=== PATIENT | female | born 2005 ===

== ENCOUNTER 2024-10-03 08:52 | Outpatient (AMB) | payer OTHER, SELFPAY ==
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
[2024-10-03 09:07] VITALS: BP 125/81; PULSE 103; RESP 16; TEMP 36.8; O2SAT 97; BMI 31.6
--- OUTSIDE RECORDS SUMMARY | 2024-10-03 09:40 | XMS_ITS | Encounter Summary ---
Author Organization [facility] Address [address] [place] [address] Care Team Providers Care [facility] Transportation Worker Name Role Phone [facility] P rovider Encounter Details Date Type Department Care Team (Late st Contact Info) Description 02/25/2024 Scanned Document [facility] [employer] [address] [place] [phone] Provider, Darius, [address] [place] [address] Social History Tobacco Use Types Packs/Day Years Used Date Smoking Tobacco: Former Cigarettes Smokeless Tobacco: Current Alcohol Use Standard Drinks/Week Comments Yes 0 (1 standard drink = 0.6 oz pur e alcohol) rarely Sex and Gender Information Value Date Recorded Sex Assigned at Female 02/18/2023 5:50 PM EDT Gender Identity Female 02/18/2023 5:50 PM EDT Sexual Orientation Choose not to disclose 2022 5:50 PM EDT documented as of this encounter Plan of Treatment Not on file documented as of this encounter Visit Diagnoses Not on filedocumented in this encounter Care Teams [facility] [employer] Worker Relationship Specialty Start Date End Date [facility] [address] [place] [address] PCP - General 02/18/23 documented as of this encounter
--- OUTSIDE RECORDS SUMMARY | 2024-10-03 09:40 | XMS_ITS ---
Author Name [facility] Organization Unknown Results Test Name/Text Value Interpretation Date Range Source PROLACTIN 14.3ng/mL Normal [id number] [facility] TSH 2.07uIU/mL Normal [id number] 0.35 - 5.5 [facility] PROLACTIN 27.9ng/mL Normal [id number] [facility] VITAMIN D, 25OH 29.7 Below low normal [id number] [facility] RBC,URINE 0-2 Normal [id number] - [facility] WBC,URINE 0-5 Normal [id number] - [facility] EPITH,URINE 2+ Abnormal [id number] - [facility] MICROSCOPIC/TYPE AUTOMATED Normal [id number] [facility] BACTERIA 2+ Abnormal [id number] - [facility] CASTS NEGATIVE Normal [id number] - [facility] UA COMMENTS Manual Review NOT INDICATED Normal [id number] [facility] TSH 0.54uIU/mL Normal [id number] 0.35 - 5.5 [facility] PROTEIN,URINE NEGATIVE Normal [id number] - [facility] COLOR,URINE YELLOW Normal [id number] [facility] GLUCOSE,URINE NEGATIVE Normal [id number] - [facility] BILIRUBIN, URINE NEGATIVE Normal [id number] - [facility] NITRITES,URINE NEGATIVE Normal [id number] - [facility] LEUKOCYTE ESTERASE,URINE NEGATIVE Normal [id number] - [facility] KETONES,URINE NEGATIVE Normal [id number] - [facility] BLOOD,URINE NEGATIVE Normal [id number] - [facility] APPEARANCE,URINE CLEAR Normal [id number] - [facility] PH,URINE 5.5 Normal [id number] 4.6 - 8 [facility] SPECIFIC GRAVITY, URINE 1.022 Normal [id number] 1.005 - 1.022 [facility] UROBILINOGEN 0.2EU/dL Normal [id number] 0.2 - 1 [facility] EST AVG GLUCOSE 94mg/dL Normal [id number] [facility] HEMOGLOBIN A1C 4.9% Normal [id number] 4.8 - 5.9 [facility] CHOLESTEROL 214mg/dL Above high normal [id number] 0 - 200 [facility] TRIGLYCERIDE 145mg/dL Normal [id number] 0 - 200 [facility] VLDL CHOLESTEROL, CALC 29mg/dL Normal [id number] - 30 [facility] HDL 47mg/dL Normal [id number] 40 - 60 [facility] LDL,CALCULATED 138mg/dL Above high normal [id number] 0 - 130 [facility] CHOLESTEROL/ HDL RATIO 4.55 Normal [id number] 0 - 5.1 [facility] ANION GAP 13 Normal [id number] 10 - 25 [facility] SGOT 22Units/L Normal [id number] 14 - 36 [facility] BICARBONATE 27mmol/L Normal [id number] 24 - 32 [facility] SGPT 18Units/L Normal [id number] - 35 [facility] BUN/CREA RATIO 10Ratio Normal [id number] [facility] BUN 9mg/dL Normal [id number] 6 - 20 [facility] POTASSIUM 4.3mmol/L Normal [id number] 3.5 - 5.1 [facility] CALCIUM 9.6mg/dL Normal [id number] 8.4 - 10.2 [facility] GLUCOSE, FASTING 92mg/dL Normal [id number] 70 - 100 [facility] CREATININE 0.9mg/dL Normal [id number] 0.4 - 1.1 [facility] ALKALINE PHOSPHATASE 61Units/L Normal [id number] 40 - 1 29 [facility] SODIUM 141mmol/L Normal [id number] 135 - 145 [facility] TOTAL PROTEIN 7g/dL Normal [id number] 6.4 - 8.3 [facility] GLOBULIN 2.5g/dL Normal [id number] 2.3 - 4.5 [facility] ALBUMIN 4.5g/dL Normal [id number] 3.5 - 5 [facility] BILIRUBIN, TOTAL 0.6mg/dL Normal [id number] 0.2 - 1.3 [facility] CHLORIDE 105mmol/L Normal [id number] 98 - 107 [facility] A:G RATIO 1.8Ratio Normal [id number] 0.91 - 1.95 [facility] DIFF TYPE AUTOMATED Normal [id number] [facility] BASOPHIL 0.4% Normal [id number] 0 - 2 [facility] LYMPHOCYTES 22.6% Normal [id number] 20 - 52 [facility] IMMATURE GRAN. 0.5% Normal [id number] 0 - 1.1 [facility] ABS. EOSINOPHIL 0.19K/uL Normal [id number] 0 - 0.45 [facility] NEUTROPHIL 65.5% Normal [id number] 50 - 70 [facility] ABS. NEUTROPHIL 5.02K/uL Normal [id number] 2.5 - 7 [facility] ABS. LYMPHOCYTE 1.73K/uL Normal [id number] 1 - 5.2 [facility] ABS. BASOPHIL 0.03K/uL Normal [id number] 0 - 0.2 [facility] ABS. IMMATURE GRAN. 0.04K/uL Normal [id number] - 0.1 [facility] EOSINOPHIL 2.5% Normal [id number] 0 - 4 [facility] ABS. MONOCYTE 0.65K/uL Normal [id number] 0 - 0.9 [facility] NUCLEATED RBC 0% Normal [id number] - [facility] ABS. NUCLEATED RBC 0K/uL Normal [id number] - [facility] MONOCYTE 8.5% Normal [id number] 0 - 12.5 [facility] RBC COUNT 4.73M/uL Normal [id number] 4.2 - 5.4 [facility] RDWC 12.2% Normal [id number] 11 - 16 [facility] WBC COUNT 7.66K/uL Normal [id number] 4.2 - 10 [facility] MPV 9.8fL Normal [id number] 8 - 13 [facility] HEMATOCRIT 39.9% Normal [id number] 38 - 47 [facility] MCHC 33.6g/dL Normal [id number] 32 - [address] [facility] [address] 308K/uL Normal [id number] 150 - 450 [facility] HEMOGLOBIN 13.4g/dL Normal [id number] 12 - 16 [facility] MCV 84.4fL Normal [id number] 80 - 96 [facility] MCH 28.3pg Normal [id number] 27 - 31 [facility] RDWS 36.9fL Below low normal [id number] 41 - 51 [facility] BUN 13mg/dL Normal [id number] 6 - 20 [facility] POTASSIUM 4mmol/L Normal [id number] 3.5 - 5.1 [facility] CALCIUM 9.7mg/dL Normal [id number] 8.4 - 10.2 [facility] GLUCOSE, RANDOM 93mg/dL Normal [id number] 65 - 130 [facility] CREATININE 0.8mg/dL Normal [id number] 0.4 - 1.1 [facility] ANION GAP 13 Normal [id number] 10 - 25 [facility] SODIUM 137mmol/L Normal [id number] 135 - 145 [facility] BICARBONATE 24mmol/L Normal [id number] 24 - 32 [facility] CHLORIDE 104mmol/L Normal [id number] 98 - 107 [facility] BUN/CREA RATIO 16.25Ratio Normal [id number] [facility] ANION GAP 32 Above high normal [id number] 10 - 25 [facility] BICARBONATE 8mmol/L Below low normal [id number] 24 - 32 [facility] SALICYLATE <1.0 Below low normal [id number] 15 - 30 [facility] ALKALINE PHOSPATASE 59Units/L Normal [id number] 40 - 12 9 [facility] SGOT 29Units/L Normal [id number] 14 - 36 [facility] TOTAL PROTEIN 8.4g/dL Above high normal [id number] 6.4 - 8.3 [facility] GLOBULIN 2.9g/dL Normal [id number] 2.3 - 4.5 [facility] BILIRUBIN, CONJUGATED 0mg/dL Normal [id number] 0 - 0 .3 [facility] ALBUMIN 5.5g/dL Above high normal [id number] 3.5 - 5 [facility] BILIRUBIN, TOTAL 0.8mg/dL Normal [id number] 0.2 - 1.3 [facility] SGPT 67Units/L Above high normal [id number] - 35 [facility] A:G RATIO 1.9Ratio Normal [id number] 0.91 - 1.95 [facility] ALCOHOL <10 Abnormal [id number] - [facility] ACETAMINOPHEN <10.0 Below low normal [id number] 10 - 3 0 [facility] BUN 12mg/dL Normal [id number] 6 - 20 [facility] POTASSIUM 3.5mmol/L Normal [id number] 3.5 - 5.1 [facility] CALCIUM 10.1mg/dL Normal [id number] 8.4 - 10.2 [facility] GLUCOSE, RANDOM 149mg/dL Above high normal [id number] 65 - 130 [facility] CREATININE 1mg/dL Normal [id number] 0.4 - 1.1 [facility] SODIUM 138mmol/L Normal [id number] 135 - 145 [facility] CHLORIDE 102mmol/L Normal [id number] 98 - 107 [facility] BUN/CREA RATIO 12Ratio Normal [id number] [facility] RBC COUNT 4.36M/uL Normal [id number] 4.2 - 5.4 [facility] RDWC 11.9% Normal [id number] 11 - 16 [facility] WBC COUNT 9.6K/uL Normal [id number] 4.2 - 10 [facility] MPV 10fL Normal [id number] 8 - 13 [facility] HEMATOCRIT 38.1% Normal [id number] 38 - 47 [facility] MCHC 34.4g/dL Normal [id number] 32 - [address] [facility] 317K/uL Normal [id number] 150 - 450 [facility] HEMOGLOBIN 13.1g/dL Normal [id number] 12 - 16 [facility] MCV 87.4fL Normal [id number] 80 - 96 [facility] MCH 30pg Normal [id number] 27 - 31 [facility] RDWS 37.9fL Below low normal [id number] 41 - 51 [facility] DIFF TYPE AUTOMATED Normal [id number] [facility] BASOPHIL 0.3% Normal [id number] 0 - 2 [facility] LYMPHOCYTES 22.4% Normal [id number] 20 - 52 [facility] IMMATURE GRAN. 0.3% Normal [id number] 0 - 1.1 [facility] ABS. EOSINOPHIL 0.04K/uL Normal [id number] 0 - 0.45 [facility] NEUTROPHIL 66.5% Normal [id number] 50 - 70 [facility] ABS. NEUTROPHIL 6.37K/uL Normal [id number] 2.5 - 7 [facility] ABS. LYMPHOCYTE 2.15K/uL Normal [id number] 1 - 5.2 [facility] ABS. BASOPHIL 0.03K/uL Normal [id number] 0 - 0.2 [facility] ABS. IMMATURE GRAN. 0.03K/uL Normal [id number] - 0.1 [facility] EOSINOPHIL 0.4% Normal [id number] 0 - 4 [facility] ABS. MONOCYTE 0.97K/uL Above high normal [id number] 0 - 0 .9 [facility] NUCLEATED RBC 0% Normal [id number] - [facility] ABS. NUCLEATED RBC 0K/uL Normal [id number] - [facility] MONOCYTE 10.1% Normal [id number] 0 - 12.5 [facility] COCAINE NEGATIVE Normal [id number] - [facility] THC POSITIVE Abnormal [id number] - [facility] AMPHETAMINE NEGATIVE Normal [id number] - [facility] BENZODIAZEPINE NEGATIVE Normal [id number] - [facility] BARBITURATES NEGATIVE Normal [id number] - [facility] OPIATES NEGATIVE Normal [id number] - [facility] PHENCYCLIDINE (PCP) NEGATIVE Normal [id number] - [facility] RBC,URINE 0-2 Normal [id number] - [facility] WBC,URINE 0-5 Normal [id number] - [facility] EPITH,URINE 1+ Abnormal [id number] - [facility] MICROSCOPIC/TYPE AUTOMATED Normal [id number] [facility] BACTERIA NORMAL Normal [id number] - [facility] CASTS 1+ Abnormal [id number] - [facility] UA COMMENTS Manual Review NOT INDICATED Normal [id number] [facility] COLOR,URINE YELLOW Normal [id number] [facility] GLUCOSE,URINE NEGATIVE Normal [id number] - [facility] BILIRUBIN, URINE NEGATIVE Normal [id number] - [facility] NITRITES,URINE NEGATIVE Normal [id number] - [facility] LEUKOCYTES,URINE NEGATIVE Normal [id number] - [facility] BLOOD,URINE NEGATIVE Normal [id number] - [facility] APPEARANCE,URINE CLOUDY Abnormal [id number] - [facility] PROTEIN,URINE 30mg/dL Abnormal [id number] - [facility] KETONES,URINE 15mg/dL Abnormal [id number] - [facility] PH,URINE 7.5 Normal [id number] 4.6 - 8 [facility] SPECIFIC GRAVITY, URINE 1.026 Above high normal [id number] 1.005 - 1.022 [facility] UROBILINOGEN 1EU/dL Normal [id number] 0.2 - 1 [facility] History of Medication Use Medication Directions Dispensed Refills Start Date End Date Stat fluconazole (diFLUcan) 150 MG tablet Take 1 tablet (150 mg total) by mouth once. 03/24/2023 active hydrOXYzine (VISTARIL) 25 mg capsule TAKE 1 CAPSULE BY MOUTH THREE TIMES DAILY NEEDED FOR ANXIETY 03/04/2023 active lamoTRIgine (LaMICtal) 25 mg tablet TAKE 1 TABLET BY MOUTH ONCE DAILY FOR 15 DAYS THEN 2 ONCE DAILY 04/15/2023 active guanFACINE (INTUNIV) 1 MG 24 hr tablet Take 1 mg by mouth nightly. 03/04/2023 active OLANZapine (ZyPREXA) 10 mg tablet Take 10 mg by mouth nightly. 04/15/2023 active Problems Problem Status Onset Date Problem Type Date of Resoluti on Source Galactorrhea active EncounterDiagnosisAct HHCCT Bilateral bunions active EncounterDiagnosisAct [facility] Encounters Encounter Type Encounter Reason Primary Diagnosis Location Date Emergency EVAL EVAL [facility] 05/20/2024 Ambulatory Personality disorder, unspecified Personality disorder, unspecified [facility] 05/05/2024 Emergency Localized swelling, mass and lump, trunk Localized swelling, mass and lump, trunk [facility] 04/22/2024 Ambulatory Galactorrhea not associated with childbirth Galactorrhea not associated with childbirth [facility] 04/13/2024 Ambulatory Galactorrhea not associated with childbirth Galactorrhea not associated with childbirth [facility] 01/19/2024 Ambulatory Bipolar disorder, unspecified Bipolar disorder, unspecified [facility] 01/04/2024 Ambulatory Encntr screen for infections w sexl mode of transmiss Encntr screen for infections w sexl mode of transmiss [facility] 12/29/2023 Ambulatory Pain Pain [facility] 04/20/2023 Ambulatory Unspecified abdominal pain Unspecified abdominal pain [place] [facility] 03/23/2023 Emergency 16B [facility] 03/09/2023 Emergency Anxiety disorder, unspecified [facility] 02/20/2023 Emergency ABDOMINAL PAIN [facility] 02/20/2023 Emergency Unspecified abdominal pain Unspecified abdominal pain [place] [facility] 02/18/2023 Ambulatory Unspecified abdominal pain [facility] 02/09/2023 Emergency [facility] 12/11/2022 Care Team Organization Name Specialty Phone Email Start Date End Da te [facility] SALO LUBIN Primary [facility] 09/26/2024 [facility] HENNA EVANS Primary Care 05/06/2024 [facility] 02/26/2024 [facility] 02/04/2024 [facility] 10/06/2023 [place] [facility] 07/12/2023 [facility] 04/24/2023 024 [facility] Primary Care 04/20/2023 04/20/2023 [facility] 03/23/2023 [facility] 02/18/2023 09/07/2024 [facility] 02/18/2023 02/18/2023 [facility] Primary [facility] 12/12/2022 08/24/2024 [facility] Primary Care 12/11/2022 12/11/2022 [facility] Mariia Cardoza Primary Care 12/09/2022
--- OUTSIDE RECORDS SUMMARY | 2024-10-03 09:40 | XMS_ITS | Clinical Summary ---
Author Organization Formerly [facility] Address [address] [place] [address] Care Team Providers Care Hydrogeology Professor Name Role Phone [facility] P rovider Allergies Active Allergy Reactions Criticality Noted Date Comments Latex Rash/Dermatitis Low 02/18/2023 Medications Medication Sig Dispensed Refills Start Date End Date Status atomoxetine (STRATTERA) 25 MG capsule Take 25 mg by mouth every morning. 03/04/2023 Active dicyclomine (BENTYL) 20 MG tablet Take 20 mg by mouth 2 (two) times a day. 02/25/2023 Active guanFACINE (INTUNIV) 1 MG 24 hr tablet Take 1 mg by mouth nightly. 03/04/2023 Active hydrOXYzine pamoate (VISTARIL) 25 MG capsule TAKE 1 CAPSULE BY MOUTH THREE TIMES DAILY NEEDED FOR ANXIETY 03/04/2023 Active OLANZapine (ZyPREXA) 5 MG tablet Take 5 mg by mouth nightly. 03/10/2023 Active ondansetron (ZOFRAN-ODT) 4 MG disintegrating tablet DISSOLVE ONE TABLET IN MOUTH EVERY 12 HOURS NEEDED 02/25/2023 Active fluconazole (diFLUcan) 150 MG tabletIndications:Yeast infection Take 1 tablet (150 mg total) by mouth once. 1 tablet 03/24/2023 Active Family History Medical History Relation Name Comments Heart disease Father Diabetes Maternal Aunt Hyperlipidemia Mother Hypertension Mother Cancer, breast Paternal Aunt Stroke Paternal Grandmother Cancer, colon Paternal Uncle Asthma Sister 1 Asthma Sister 2 Relation Name Status Comments Father Maternal Aunt Mother Paternal Aunt Paternal Grandmother Paternal Uncle Sister 1 Sister 2 Social History Tobacco Use Types Packs/Day Years Used Date Smoking Tobacco: Former Cigarettes Smokeless Tobacco: Current Tobacco Cessation:Ready to Q uit: Not Asked; Counseling Given: Not Answered Alcohol Use Standard Drinks/Week Comments Yes 0 (1 standard drink = 0.6 oz pur e alcohol) rarely Sex and Gender Information Value Date Recorded Sex Assigned at Female 02/18/2023 5:50 PM EDT Gender Identity Female 02/18/2023 5:50 PM EDT Sexual Orientation Choose not to disclose 2022 5:50 PM EDT Last Filed Vital Signs Vital Sign Reading Time Taken Comments Blood Pressure 110/70 03/23/2023 11:16 AM EDT Pulse 90 03/23/2023 11:16 AM EDT Temperature 36.9 ??C (98.5 ??F) 02/18/2023 6:00 PM ED T Respiratory Rate 18 02/18/2023 7:50 PM EDT Oxygen Saturation 99% 03/23/2023 11:16 AM EDT Inhaled Oxygen Concentration - - Weight 54.9 kg (121 lb) 03/23/2023 11:16 AM EDT Height 162.6 cm (5' 4 ) 03/23/2023 11:16 AM EDT Body Mass Index 20.77 03/23/2023 11:16 AM EDT Plan of Treatment Health Maintenance Due Date Last Done Comments Hepatitis C Virus Screening 2003 HIV Screening 02/22/2016 HPV Vaccines (1 - 3-dose series) 2018 DTaP/Tdap/Td Vaccines (1 - Tdap) 2022 Hepatitis B Vaccines (1 of 3 - 19+ 3-dose series) 2022 Influenza Vaccine 01/21/2024 04/05/2020, , 05/05/2018, Additional history exists COVID-19 Vaccine (2023- season) 2024 Pap Smear (Ages 21-65) 02/22/2024 Pneumococcal Vaccine: Pediatric (0-5 Years) and At-Risk Patients (6 to 49 Years) Aged Out No longer eligible based on patient's age to complete this topic Care Teams Hydrogeology Professor Relationship Specialty Start Date End Date [facility] [address] [place] [address] PCP - General 02/18/23
--- OUTSIDE RECORDS SUMMARY | 2024-10-03 09:40 | XMS_ITS | Encounter Summary ---
Author Organization Formerly [facility] Address [address] [place] [address] Care Team Providers Care Rn Utilization Management Um Name Role Phone [facility] Primary Care P rovider Encounter Details Date Type Department Care Team (Late st Contact Info) Description 04/21/2024 Scanned Document [facility] General Surgery [place] 5 [facility] [address] [place], [place] [phone] Summer Lan MD 5 [facility] [address] [place], [place] Social History Tobacco Use Types Packs/Day Years [...] on filedocumented in this encounter Care Teams Rn Utilization Management Um Relationship Specialty Start Date End Date [facility] [address] [place] [address] PCP - General 02/18/23 documented as of this encounter
== END 2024-10-03 10:19 | disposition home or self-care (01) ==
LOC: HO.HMCFM 08:53
PROVIDERS: PCP Nurse Practitioner Family; Visit Provider Nurse Practitioner Family
DX: G47.9 Sleep disorder, unspecified (principal); F31.9 Bipolar disorder, unspecified; F41.9 Anxiety disorder, unspecified; R53.83 Other fatigue; Z11.3 Encounter for screening for infections with a predominantly sexual mode of transmission; Z72.89 Other problems related to lifestyle

== ENCOUNTER → 2024-10-03 08:52 | Outpatient (BNVA) | payer OTHER, SELFPAY | PROVIDERS: PCP Nurse Practitioner Family; Visit Provider Nurse Practitioner Family | DX: Z00.00 Encounter for general adult medical examination without abnormal findings (principal); F31.9 Bipolar disorder, unspecified; F41.9 Anxiety disorder, unspecified; G47.9 Sleep disorder, unspecified; R53.83 Other fatigue; Z72.89 Other problems related to lifestyle | CPT/HCPCS: 96127 ==

== ENCOUNTER 2024-10-04 13:50 | Outpatient (REF) | payer OTHER, SELFPAY ==
--- OUTSIDE RECORDS SUMMARY | 2024-10-04 17:03 | XMS_ITS | Encounter Summary ---
Author Organization [facility] Address [address] [place] [address] Care Team Providers Care Proofer Prepress Name Role Phone [facility] Primary Care P rovider Encounter Details Date Type Department Care Team (Late st Contact Info) Description 04/21/2024 Scanned Document [facility] General Surgery [place] 5 [facility] [address] [place], [place] [phone] Summer Lan MD 5 [facility] [address] [place], [place] Social History Tobacco Use Types Packs/Day [...] on filedocumented in this encounter Care Teams Proofer Prepress Relationship Specialty Start Date End Date [facility] [address] [place] [address] PCP - General 02/18/23 documented as of this encounter
--- OUTSIDE RECORDS SUMMARY | 2024-10-04 17:03 | XMS_ITS | Encounter Summary ---
Author Organization [facility] Address [address] [place] [address] Care Team Providers Care Quality Assurance Director Name Role Phone [facility] Primary Care P rovider Encounter Details Date Type Department Care Team (Late st Contact Info) Description 02/25/2024 Scanned Document [facility] [employer] [address] [place] [phone] Provider, Darius, [address] [place] [address] Social History Tobacco Use Types Packs/Day Years [...] on filedocumented in this encounter Care Teams Quality Assurance Director Relationship Specialty Start Date End Date [facility] [address] [place] [address] PCP - General 02/18/23 documented as of this encounter
--- OUTSIDE RECORDS SUMMARY | 2024-10-04 17:03 | XMS_ITS | Clinical Summary ---
Author Organization [facility] Address [address] [place] [address] Care Team Providers Care Golf Technician Name Role Phone [facility] Primary [facility] P rovider Allergies Active [...] age to complete this topic Care Teams Golf Technician Relationship Specialty Start Date End Date [facility] [address] [place] [address] PCP - General 02/18/23
[2024-10-04 18:20] LABS: MANUAL DIFF FLAG NO
[2024-10-04 18:31] LABS: Basophils Percent Auto 0.4 % (0-2); Eosinophils Absolute Auto 0.2 X10*3/uL (0.0-0.4); Eosinophils Percent Auto 2.3 % (0-4); Hematocrit 43.8 % (37.0-47.0); Hemoglobin 14.7 g/dl (12.0-16.0); Imm Gran Abs Auto 0.02 X10*3/uL (0.00-0.03); Imm Gran Pct Auto 0.2 % (0.0-0.4); Lymphocytes Absolute Auto 1.6 X10*3/uL (1.2-4.9); Lymphocytes Percent Auto 19.9 % (20-40); Mean Corpuscular HGB Conc 33.6 g/dl (31.0-35.0); Mean Corpuscular Hemoglobin 28.1 pg (27.0-33.0); Mean Corpuscular Volume 83.7 fL (80.0-98.0); Mean Platelet Volume 10.4 fL (9.4-12.3); Monocytes Absolute Auto 0.6 X10*3/uL (0.1-1.2); Monocytes Percent Auto 7.5 % (2-11); Neutrophils Absolute Auto 5.7 x10*3/uL (2.0-8.3); Neutrophils Percent Auto 69.7 % (45-73); Platelet Count 370 X10*3/uL (160-400); Red Blood Count 5.23 X10*6/uL (4.20-5.50); Red Cell Distribution Width 11.8 % (11.0-16.0); White Blood Count 8.1 X10*3/uL (4.8-10.8)
[2024-10-04 18:49] LABS: Alanine Aminotransferase 18 U/L (0-31); Albumin Level 4.9 g/dL (3.5-5.0); Alkaline Phosphatase 67 U/L (39-117); Anion Gap 15 (12-20); Aspartate Amino Transferase 31 U/L (5-31); Bilirubin Total 0.8 mg/dL (0.0-1.0); Blood Urea Nitrogen 12 mg/dL (9-16); Calcium 9.8 mg/dL (8.4-10.2); Carbon Dioxide 25 mmol/L (22-29); Chloride 104 mmol/L (96-108); Cholesterol 194 mg/dL (<200); Estimated Glomerular Filt Rate > 60; Glucose Fasting 94 mg/dL (60-99); HDL Cholesterol 35 mg/dL (>40); LDL Cholesterol Calculated 127 mg/dL (<100); Potassium 3.8 mmol/L (3.3-5.1); Sodium 140 mmol/L (135-145); Total Protein 7.9 g/dL (6.5-8.0); Triglycerides 161 mg/dL (<150)
[2024-10-04 19:07] LABS: TSH reflex Free T4 0.83 uIU/mL (0.32-4.0); Vitamin D 25-OH Total 58.2 ng/mL (>30)
[2024-10-05 07:57] LABS: HBS Num1 > 1000.00 mIU/mL (0-7.99); HBc Num1 0.21 S/CO (0.00-0.79); HBsAGNum1 0.38 S/CO (0.00-0.99); HIV AB/AG Nonreactive (Nonreactive); HIV Num 1 0.05 S/CO (0.00-0.99); Hepatitis B Core Antibody Nonreactive (Nonreactive); Hepatitis B Surface Antigen Negative (Negative); ~HepC Num1 0.16 S/CO (0.00-0.79); ~Hepatitis B Surface Antibody REACTIVE (Nonreactive); ~Hepatitis C Antibody Nonreactive (Nonreactive)
[2024-10-05 08:31] LABS: Syphilis Screen Nonreactive (Nonreactive)
[2024-10-05 11:50] LABS: Appearance Urine Cloudy; Color Urine Yellow; Glucose Urine UA Negative (Negative); Leukocyte Esterase Urine Negative (Negative); Nitrite Urine Negative (Negative); Urine Blood Negative (Negative); Urine Ketones Negative (Negative); Urine Protein Negative (Neg-Trace)
[2024-10-05 12:32] LABS: Creatinine Urine 168.29 mg/dL; Microalbum/Creatinine Ratio Ur 5.3 ug/mg cr (<30)
[2024-10-05 13:17] LABS: CT PCR NOT DETECTED (Not Detect.); NG PCR NOT DETECTED (Not Detect.)
== END 2024-10-04 13:51 | disposition home or self-care (01) ==
LOC: HO.WFDLDS 13:50
PROVIDERS: Visit Provider Nurse Practitioner Family
DX: Z00.00 Encounter for general adult medical examination without abnormal findings (principal); Z11.3 Encounter for screening for infections with a predominantly sexual mode of transmission
CPT/HCPCS: 36415; 80053; 80061; 81003; 82043; 82306; 82570; 84443; 85025; 86704; 86706; 86780; 86803; 87340; 87389; 87491; 87591

== ENCOUNTER 2024-12-02 09:47 | Outpatient (REF) | payer OTHER, SELFPAY ==
[2024-12-02 18:11] LABS: Appearance Urine Clear; Color Urine Yellow; Glucose Urine UA Negative (Negative); Leukocyte Esterase Urine Large (3+) (Negative); Nitrite Urine Negative (Negative); PH 6.5 (5.0-9.0); Specific Gravity - Urine <= 1.005 (1.005-1.025); UMIC TRIGGER UACC YES; Urine Blood Negative (Negative); Urine Ketones Negative (Negative); Urine Protein Negative (Neg-Trace)
[2024-12-02 18:17] LABS: Bacterial Vaginosis PCR NEGATIVE (Negative); Candida Group PCR DETECTED (Not Detect); Candida glab krusei PCR NOT DETECTED (Not Detect); Trichomonas vaginalis PCR NOT DETECTED (Not Detect)
[2024-12-02 18:35] LABS: Bacteria Urine None Seen (None Seen); Hyaline Casts Urine 0-2 /LPF (0-2); RBC Urine 0-2 /HPF (0-2); UACC Culture Trigger YES; WBC Urine 21-50 /HPF (0-5)
== END 2024-12-02 09:48 | disposition home or self-care (01) ==
LOC: HO.LAB 09:47
PROVIDERS: PCP Nurse Practitioner Family; Visit Provider Nurse Practitioner Family
DX: L05.91 Pilonidal cyst without abscess (principal); R30.0 Dysuria; F31.9 Bipolar disorder, unspecified; Z11.3 Encounter for screening for infections with a predominantly sexual mode of transmission
CPT/HCPCS: 81001; 81515; 87086

== ENCOUNTER 2024-12-02 09:47 | Outpatient (AMB) | payer OTHER, SELFPAY ==
--- NOTE | 2024-12-02 09:50 | A.OFFPC_ITS ---
Vital Signs 12/02/24 09:57 Height 5 ft 4 in Weight 177 lb BMI 30.4 BP 118/68 Blood Pressure Location Lt brachial Position Sitting Respiration 12 Pulse 78 Pulse Source Pulse Oximeter Temp 97.6 F Temp Source Oral Pulse Oximetry (%) 99 Oxygen Delivery Method Room Air Intake Visit Reasons: Suspected UTI or yeast infection Intake Note: Patient c/o itchy, burning when urinating and when washing is painful. Patient was on 3 different antibiotics given at the urgent care with no relief. Internet Marketing Executive Required: No Allergies latex Allergy (Severe, Uncoded 12/02/24 10:01) Anaphylaxis Medication List - Last Reconciled 12/02/24 by Argelia Herbert, WING COMMANDER-BC hydroxyzine HCl 50 mg PO DAILY PRN 30 days melatonin 12 mg PO BEDTIME Tobacco use date assessed: 12/02/24 Dental Screening Dental Screen Date: 12/02/24 Did you have a dental visit in the last 12 months?: Yes Did you have a dental problem in the last 6 months where you did not have access to dental care?: No Was dental information given to patient?: Patient has dentist HPI HPI Comments History of Present Illness Details History of Present Illness - The patient is a 19-year-old female pr esenting with genitourinary discomfort suggestive of UTI. - Seen at 11/11/24 [facility] for same compl aints, noted to have pilonidal cyst, sent home w/ flagyl and augmentin with subsequent antibiotics use. - Cont w/ same sx of dysuria - History of severe vomiting and ovarian cysts identified via ultrasound. - Extended menstrual bleeding managed wi Nexplanon due to menorrhagia. - Last gynecological examination within the previous year. - Needs new NURSING HOME PHYSICIAN after moving - Trauma hx, only wants Female providers Review of Systems - Genitourinary: Reports genitourinary d iscomfort. - Gastrointestinal: Reports past episode s of severe vomiting. - Gynecological: Reports prolonged menst rual bleeding and ovarian cysts. - Psychiatric: Reports stress and unspec ified eating disorder. - Weight: Reports past weight fluctuatio ns due to stress-induced factors. Physical Exam General: Well developed, well nourished, in no acute distress. Appears stated age. Head: Normocephalic, atraumatic. Eyes: Pupils are equal, round and reactive to light and accommodation. Conjunctivae are clear. Vision grossly normal. Abdomen: Bowel sounds present in all quadrants. The abdomen is soft, nontender, with no masses or organomegaly Psych: Mood is expansive and rambling; paranoid. Accompanied by boyfriend. Results 11/11/24 - Labs: Urinalysis conducted, previous t ests indicated less than 10,000 CFU/mL in urine cultures. - Imaging: No new imaging during this co nsultation. - Labs: Urinalysis conducted, previous tests indicated less than 10,000 CFU/mL in urine cultures. Discussion Notes I informed the patient about the potential presence of a yeast infection or bacterial vaginosis due to recent antibiotic use. I explained the process of performing a vaginal swab for self-collection in the clinic to assess infections, including STDs. She was advised on the potential outcomes and the importance of this test in providing an accurate diagnosis. We discussed possible discomfort and the logistics of specimen collection. The benefits and limitations of the test, especially after antibiotic treatment, were stated. Additionally, I explained the referral process to [facility] group, outlining the non-immediacy but reassurance the call would be made to her. Moreover, we touched on the importance of follow-up with a surgeon for her pilonidal cyst and she can coordinate with her insurance for suitable network providers. she was unable to void at time of visit she was given materials to submit UA C&S at her convenience Patient Instructions - Follow up with [facility] s [facility] group. - Complete vaginal swab collection as in structed. - Monitor for severe symptoms and seek u rgent care if necessary. - She will called w/ results once avail - [facility] pharmacy Consent Patient was informed and verbally consented to the use of an ambient scribe for clinic note documentation during this visit. Total time spent caring for the patient today was 40 minutes. This includes time spent before the visit reviewing the chart, time spent during the visit, and time spent after the visit on documentation, reviewing laboratory results, diagnostic imaging, medications, performing a medically necessary evaluation, counseling on diagnoses, care coordination, ordering appropriate tests, ordering appropriate medications, review of tests performed by other providers, reporting test results with the patient, communication with other healthcare providers. [facility] Medical History (Updated 12/02/24 @ 10:08 by UDKE GerardoP-BC) Anxiety Bipolar 1 disorder Depression Eczema High blood pressure IBS (irritable bowel syndrome) Imbalance Incontinence Memory loss Tremors of nervous system Family History (Updated 10/03/24 @ 09:13 by Davina Holden MA) Father Alcohol abuse Sister Substance abuse FH: mental illness Mother FH: mental illness Paternal Grandmother FH: mental illness Cancer Maternal Grandfather Testicular cancer Social History (Updated 10/03/24 @ 09:07 by Davina Holden MA) Housing: Apartment Patient Tobacco Use Status: Never used Tobacco e-Cigarette/Vaping Use: Currently Using Second Hand Smoke Exposure: No Substance Use Type: Marijuana service: No Current occupational status: unemployed Current occupational exposures/hazards: No Cognitive needs: No Hearing needs: No Vision needs: Yes Questionnaire Thrive Questionnaire Date Thrive assessed: 10/03/24 I am a: Patient What is your living situation today?: I have a steady place to live Within the past 12 months, did the food you bought not last and you didn't have the money to get more?: Never true Within the past 12 months, did you worry whether your food would run out before you got money to buy more?: Never true Do you have trouble paying for medicines?: I choose not to answer this question Do you have trouble getting transportation to medical appointments?: No Do you have trouble paying your heating and electricity bill?: No Do you have trouble taking care of your child, family member or friend?: No Do you have trouble with day-to-day activities such as bathing, preparing meals, shopping, managing finances, etc.?: Yes Are you currently unemployed and looking for a job?: Yes Are you interested in more education?: I choose not to answer this question THRIVE Score: 0 SARANYA-7 AMB Questionnaire SARANYA-7 Date SARANYA - 7 assessed: 10/03/24 Source: Developed by Drs. Jared Denis, Antonia Rivera, Gregory Ayala and colleagues, with an educational preeti from [employer]. Physical exam (Primary Care) BMI result Body Mass Index 30.4 Tobacco/Smoking Status: Tobacco use Status Tobacco use date assessed 12/02/24 12/02/24 09:53 Patient Tobacco Use Status Never used Tobacco 12/02/24 09:53 e-Cigarette/Vaping Use Currently Using 12/02/24 09:53 Thrive Assessment: Date of Thrive Assessment Date Thrive assessed 10/03/24 12/02/24 09:53 Coding Level of Care Code Est Pt Level 5 (24076) Complex EM visit Add On G2211 Diagnoses Pilonidal cyst L05.91 Dysuria R30.0 Bipolar 1 disorder F31.9 Assessment & Plan Assessment & Plan (1) Pilonidal cyst: Code(s): L05.91 - Pilonidal cyst without abscess Category: Medical (2) Dysuria: Code(s): R30.0 - Dysuria Category: Medical (3) Bipolar 1 disorder: Code(s): F31.9 - Bipolar disorder, unspecified Category: Medical Plan . Orders: Orders UA CC w/rflx Micro + Cult Today R30.0 - Dysuria Bacterial Vaginosis Panel Today R30.0 - Dysuria, Z11.3 - Encounter for screening for infections with a predominantly sexual mode of transmission Referrals [facility] Referral Z12.4 - Encounter for screening for malignant neoplasm of cervix
[2024-12-02 09:57] VITALS: BP 118/68; PULSE 78; RESP 12; TEMP 36.4; O2SAT 99; BMI 30.4
--- OUTSIDE RECORDS SUMMARY | 2024-12-02 10:20 | XMS_ITS | Clinical Summary ---
Author Organization [facility] Address [address] [place] [id number] Care Team Providers Care Director Informatics Name Role Phone [facility] P rovider Allergies Active Allergy Reactions Criticality Noted Date Comments Latex Rash/Dermatitis Low 02/18/2023 Medications atomoxetine (STRATTERA) 25 MG capsule Take 25 mg by mouth every morning. 3 Active dicyclomine (BENTYL) 20 MG tablet Take 20 mg by mouth 2 (two) times a day. 3 Active guanFACINE (INTUNIV) 1 MG 24 hr tablet Take 1 mg by mouth nightly. 3 Active hydrOXYzine pamoate (VISTARIL) 25 MG capsule TAKE 1 CAPSULE BY MOUTH THREE TIMES DAILY NEEDED FOR ANXIETY 3 Active OLANZapine (ZyPREXA) 5 MG tablet Take 5 mg by mouth nightly. 3 Active ondansetron (ZOFRAN-ODT) 4 MG disintegrating tablet DISSOLVE ONE TABLET IN MOUTH EVERY 12 HOURS NEEDED 3 Active fluconazole (diFLUcan) 150 MG tabletIndications:Y east infection Take 1 tablet (150 mg total) by mouth once. 1 tablet 3 Active Family History Medical History Relation Name [...] = 0.6 oz pur e alcohol) rarely Comments No Sex and Gender Information Value Date Recorded Sex Assigned at Female 02/18/2023 5:50 PM EDT Legal Sex Female 5:44 PM EDT Gender Identity Female 02/18/2023 5:50 [...] of 3 - 19+ 3-dose series) 2022 COVID-19 Vaccine (1 - 2023-25 season) 2024 Pap Smear (Ages 21-65) 02/22/2024 Influenza Vaccine 01/20/2025 04/05/2020, , 05/05/2018, Additional history exists Pneumococcal Vaccine: Pediatric (0-5 Years) and At-Risk Patients (6 to 49 Years) Aged Out No longer eligible based on patient's age to complete this topic Insurance [facility] Care Teams Director Informatics Relationship Specialty Start Date End Date [facility] [address] [place] [address] PCP - General 02/18/23
== END 2024-12-02 10:32 | disposition home or self-care (01) ==
LOC: HO.HMCFM 09:48
PROVIDERS: PCP Nurse Practitioner Family; Visit Provider Nurse Practitioner Family
DX: L05.91 Pilonidal cyst without abscess (principal); R30.0 Dysuria; F31.9 Bipolar disorder, unspecified

== ENCOUNTER 2025-01-12 10:51 | Outpatient (AMB) | payer OTHER, SELFPAY ==
--- NOTE | 2025-01-12 10:55 | MHC.OFFVIS ---
Vital Signs 01/12/25 11:05 Height 5 ft 4 in Weight 167 lb 2 oz BMI 28.7 BP 160/86 H Blood Pressure Location Lt brachial Position Sitting Pulse 88 Intake Visit Reasons: pilonidal cyst Intake Note: Patient is seen in office for evaluation of a pilonidal cyst. Pt c/o:lanced 9 months ago in [place] at the time had discharge and foul odor, after was seen in [facility], onset one yr, currently has no discharge, would like to have it surgically removed due to discomfort [facility] notes: 12/15/24 Maintenance Superintendent Required: No Echo Vascular Technologist: Echo Vascular Technologist Present Accompanied by: Family/Other Allergies latex Allergy (Severe, Uncoded 01/12/25 11:04) Anaphylaxis Medication List - Last Reconciled 01/12/25 by Lorenzo Farrell MD aripiprazole 2 mg PO DAILY guanfacine ER 1 mg PO QAM hydroxyzine HCl 50 mg PO DAILY PRN 30 days melatonin 12 mg PO BEDTIME HPI Comments Details: 19-year-old female patient presenting for evaluation of pilonidal cyst. She reports having a 1 year history of a pilonidal cyst which initially required lancing 1 year ago. Since then she has had persistent tenderness and subsequently was evaluated in the emergency department approximately 2 months ago at which another incision and drainage was performed. This revealed no purulence discharge she was subsequently discharged to home on oral antibiotics. She again noted increased pain in the area and was subsequently started on antibiotics last month by her PCP. Currently the pain is improved at approximately 3/10 but she is having trouble sleeping and she then able to keep any pressure on her bottom even at night. An x-ray was performed which revealed no bony deformity. She is requesting surgical excision to prevent further infection. [facility] Medical History Bipolar 1 disorder Depression Anxiety Eczema Tremors of nervous system Imbalance Memory loss Incontinence IBS (irritable bowel syndrome) High blood pressure Family History Father Alcohol abuse Sister Substance abuse FH: mental illness Mother FH: mental illness Paternal Grandmother FH: mental illness Cancer Maternal Grandfather Testicular cancer Social History Housing: Apartment Patient Tobacco Use Status: Never used Tobacco e-Cigarette/Vaping Use: Currently Using Second Hand Smoke Exposure: No Substance Use Type: Marijuana service: No Current occupational status: unemployed Current occupational exposures/hazards: No Cognitive needs: No Hearing needs: No Vision needs: Yes Review of Systems Const All systems reviewed & are unremarkable except as noted in HPI and below Denies chills, Denies fever(s), Denies poor appetite and Denies weakness Card Denies chest pain, Denies irregular heart rhythm, Denies palpitations and Denies dyspnea Resp Denies cough, Denies excessive phlegm production and Denies dyspnea GI Denies abdominal pain, Denies bloating, Denies change in bowel habits, Denies constipation, Denies heartburn, Denies diarrhea, Denies nausea and Denies vomiting Denies urinary frequency Musc Denies back pain, Denies muscle weakness and Denies numbness Skin/Breast Denies changing lesions and Denies unusual bruising Neuro Reports memory loss, Denies numbness, Denies paresthesias and Denies weakness Psych Reports anxiety, Reports depression and Reports memory loss Endo Denies palpitations David/Lymph Denies lymphadenopathy Physical Exam Const General: cooperative and no acute distress Nutritional Appearance: well nourished Orientation/consciousness: patient oriented x3 Limitations: no limitations HEENT Head: Yes normocephalic and Yes atraumatic Ears: hearing grossly normal bilaterally Resp Effort & Inspection: normal respiratory effort, no audible wheezes, no cough and no respiratory distress Cardio Jugular venous distension: no JVD GI Inspection: Yes normal to inspection Back/Spine/Pelvis Other: Evidence of previous incision and drainage in the intergluteal cleft. Surrounding skin is normal with no areas of inflammation, no palpable pilonidal cyst and no evidence of ingrown hair cleft. No convincing evidence of ongoing pilonidal cyst disease. Skin Other: Warm, dry, no rash Neuro General: patient oriented x3 Extrem General: Yes no clubbing, cyanosis or edema Assessment & Plan Assessment & Plan (1) Pilonidal cyst: Code(s): L05.91 - Pilonidal cyst without abscess Category: Medical Plan 19-year-old female patient with an apparent history of pilonidal cyst abscess returning today for consideration of pilonidal cystectomy. On examination however the patient has no evidence of ongoing pilonidal cyst disease in the intergluteal cleft. I am concerned about her insistence on having surgery when there was no evidence on examination other than the incision and drainage scars. Her surrounding skin is completely normal at this time. I recommended getting a 2nd opinion from Dr. Vega and she is agreeable to this. Coding Level of Care Code New Pt Level 4 (11390) Diagnoses Pilonidal cyst L05.91
[2025-01-12 11:05] VITALS: BP 160/86; PULSE 88; BMI 28.7
--- OUTSIDE RECORDS SUMMARY | 2025-01-12 11:43 | XMS_ITS ---
Author Name [facility] Organization Unknown Results Test Name/Text Value Interpretation Date Range Source PROLACTIN 14.3 ng/mL Normal 05/05/2024 [facility] TSH 2.07 uIU/mL Normal 01/19/2024 0.35 - 5.5 [facility] PROLACTIN 27.9 ng/mL Normal 01/19/2024 [facility] BACTERIA 2+ Abnormal 01/04/2024 - [facility] EPITH,URINE 2+ Abnormal 01/04/2024 - [facility] MICROSCOPIC/TYPE AUTOMATED Normal 01/04/2024 [facility] RBC,URINE 0-2 Normal 01/04/2024 - [facility] CASTS NEGATIVE Normal 01/04/2024 - [facility] UA COMMENTS Manual Review NOT INDICATED Normal 01/04/2024 [facility] WBC,URINE 0-5 Normal 01/04/2024 - [facility] LEUKOCYTE ESTERASE,URINE NEGATIVE Normal 01/04/2024 - [facility] GLUCOSE,URINE NEGATIVE Normal 01/04/2024 - [facility] PH,URINE 5.5 Normal 01/04/2024 4.6 - 8 [facility] UROBILINOGEN 0.2 EU/dL Normal 01/04/2024 0.2 - 1 [facility] BILIRUBIN, URINE NEGATIVE Normal 01/04/2024 - [facility] APPEARANCE,URINE CLEAR Normal 01/04/2024 - [facility] PROTEIN,URINE NEGATIVE Normal 01/04/2024 - [facility] SPECIFIC GRAVITY, URINE 1.022 Normal 01/04/2024 1.005 - 1.022 [facility] BLOOD,URINE NEGATIVE Normal 01/04/2024 - [facility] COLOR,URINE YELLOW Normal 01/04/2024 [facility] KETONES,URINE NEGATIVE Normal 01/04/2024 - [facility] NITRITES,URINE NEGATIVE Normal 01/04/2024 - [facility] HEMOGLOBIN A1C 4.9 % Normal 01/04/2024 4.8 - 5.9 [facility] EST AVG GLUCOSE 94.0 mg/dL Normal 01/04/2024 [facility] VITAMIN D, 25OH 29.7 Below low normal 01/05/2024 [facility] TSH 0.54 uIU/mL Normal 01/04/2024 0.35 - 5.5 [facility] VLDL CHOLESTEROL, CALC 29.0 mg/dL Normal 01/04/2024 - 30 [facility] LDL,CALCULATED 138.0 mg/dL Above high normal 01/04/2024 0 - 130 [facility] HDL 47.0 mg/dL Normal 01/04/2024 40 - 60 [facility] CHOLESTEROL 214.0 mg/dL Above high normal 01/04/2024 0 - 200 [facility] TRIGLYCERIDE 145.0 mg/dL Normal 01/04/2024 0 - 200 [facility] CHOLESTEROL/ HDL RATIO 4.55 Normal 01/04/2024 0 - 5.1 [facility] ALKALINE PHOSPHATASE 61.0 Units/L Normal 01/04/2024 40 - 129 [facility] CHLORIDE 105.0 mmol/L Normal 01/04/2024 98 - 107 [facility] SGOT 22.0 Units/L Normal 01/04/2024 14 - 36 [facility] POTASSIUM 4.3 mmol/L Normal 01/04/2024 3.5 - 5.1 [facility] GLOBULIN 2.5 g/dL Normal 01/04/2024 2.3 - 4.5 [facility] BUN 9.0 mg/dL Normal 01/04/2024 6 - 20 [facility] BICARBONATE 27.0 mmol/L Normal 01/04/2024 24 - 32 [facility] GLUCOSE, FASTING 92.0 mg/dL Normal 01/04/2024 70 - 100 [facility] ALBUMIN 4.5 g/dL Normal 01/04/2024 3.5 - 5 [facility] SODIUM 141.0 mmol/L Normal 01/04/2024 135 - 145 [facility] A:G RATIO 1.8 Ratio Normal 01/04/2024 0.91 - 1.95 [facility] BUN/CREA RATIO 10.0 Ratio Normal 01/04/2024 [facility] CREATININE 0.9 mg/dL Normal 01/04/2024 0.4 - 1.1 [facility] SGPT 18.0 Units/L Normal 01/04/2024 - 35 [facility] BILIRUBIN, TOTAL 0.6 mg/dL Normal 01/04/2024 0.2 - 1.3 [facility] ANION GAP 13.0 Normal 01/04/2024 10 - 25 [facility] TOTAL PROTEIN 7.0 g/dL Normal 01/04/2024 6.4 - 8.3 [facility] CALCIUM 9.6 mg/dL Normal 01/04/2024 8.4 - 10.2 [facility] ABS. MONOCYTE 0.65 K/uL Normal 01/04/2024 0 - 0.9 [facility] NEUTROPHIL 65.5 % Normal 01/04/2024 50 - 70 [facility] NUCLEATED RBC 0.0 % Normal 01/04/2024 - [facility] BASOPHIL 0.4 % Normal 01/04/2024 0 - 2 [facility] ABS. NUCLEATED RBC 0.0 K/uL Normal 01/04/2024 - [facility] MONOCYTE 8.5 % Normal 01/04/2024 0 - 12.5 [facility] ABS. BASOPHIL 0.03 K/uL Normal 01/04/2024 0 - 0.2 [facility] ABS. NEUTROPHIL 5.02 K/uL Normal 01/04/2024 2.5 - 7 [facility] DIFF TYPE AUTOMATED Normal 01/04/2024 [facility] LYMPHOCYTES 22.6 % Normal 01/04/2024 20 - 52 [facility] ABS. IMMATURE GRAN. 0.04 K/uL Normal 01/04/2024 - 0.1 [facility] IMMATURE GRAN. 0.5 % Normal 01/04/2024 0 - 1.1 [facility] EOSINOPHIL 2.5 % Normal 01/04/2024 0 - 4 [facility] ABS. LYMPHOCYTE 1.73 K/uL Normal 01/04/2024 1 - 5.2 [facility] ABS. EOSINOPHIL 0.19 K/uL Normal 01/04/2024 0 - 0.45 [facility] MPV 9.8 fL Normal 01/04/2024 8 - 13 [facility] HEMOGLOBIN 13.4 g/dL Normal 01/04/2024 12 - 16 [facility] MCV 84.4 fL Normal 01/04/2024 80 - 96 [facility] MCH 28.3 pg Normal 01/04/2024 27 - 31 [facility] RBC COUNT 4.73 M/uL Normal 01/04/2024 4.2 - 5.4 [facility] WBC COUNT 7.66 K/uL Normal 01/04/2024 4.2 - 10 [facility] MCHC 33.6 g/dL Normal 01/04/2024 32 - 36 [facility] RDWS 36.9 fL Below low normal 01/04/2024 41 - 51 [facility] RDWC 12.2 % Normal 01/04/2024 11 - 16 [facility] HEMATOCRIT 39.9 % Normal 01/04/2024 38 - [address] [facility] [address] 308.0 K/uL Normal 01/04/2024 150 - 450 [facility] ANION GAP 13.0 Normal 03/10/2023 10 - 25 [facility] CALCIUM 9.7 mg/dL Normal 03/10/2023 8.4 - 10.2 [facility] BICARBONATE 24.0 mmol/L Normal 03/10/2023 24 - 32 [facility] CHLORIDE 104.0 mmol/L Normal 03/10/2023 98 - 107 [facility] BUN/CREA RATIO 16.25 Ratio Normal 03/10/2023 [facility] BUN 13.0 mg/dL Normal 03/10/2023 6 - 20 [facility] POTASSIUM 4.0 mmol/L Normal 03/10/2023 3.5 - 5.1 [facility] SODIUM 137.0 mmol/L Normal 03/10/2023 135 - 145 [facility] CREATININE 0.8 mg/dL Normal 03/10/2023 0.4 - 1.1 [facility] GLUCOSE, RANDOM 93.0 mg/dL Normal 03/10/2023 65 - 130 [facility] BICARBONATE 8.0 mmol/L Below low normal 03/10/2023 24 - 32 [facility] ANION GAP 32.0 Above high normal 03/10/2023 10 - 25 [facility] BUN/CREA RATIO 12.0 Ratio Normal 03/10/2023 [facility] CHLORIDE 102.0 mmol/L Normal 03/10/2023 98 - 107 [facility] CALCIUM 10.1 mg/dL Normal 03/10/2023 8.4 - 10.2 [facility] GLUCOSE, RANDOM 149.0 mg/dL Above high normal 03/10/2023 65 - 130 [facility] BUN 12.0 mg/dL Normal 03/10/2023 6 - 20 [facility] CREATININE 1.0 mg/dL Normal 03/10/2023 0.4 - 1.1 [facility] SODIUM 138.0 mmol/L Normal 03/10/2023 135 - 145 [facility] POTASSIUM 3.5 mmol/L Normal 03/10/2023 3.5 - 5.1 [facility] A:G RATIO 1.9 Ratio Normal 03/10/2023 0.91 - 1.95 [facility] ALKALINE PHOSPATASE 59.0 Units/L Normal 03/10/2023 40 - 1 29 [facility] ALBUMIN 5.5 g/dL Above high normal 03/10/2023 3.5 - 5 [facility] BILIRUBIN, CONJUGATED 0.0 mg/dL Normal 03/10/2023 0 - 0.3 [facility] SGPT 67.0 Units/L Above high normal 03/10/2023 - 35 [facility] GLOBULIN 2.9 g/dL Normal 03/10/2023 2.3 - 4.5 [facility] TOTAL PROTEIN 8.4 g/dL Above high normal 03/10/2023 6.4 - 8 .3 [facility] SGOT 29.0 Units/L Normal 03/10/2023 14 - 36 [facility] BILIRUBIN, TOTAL 0.8 mg/dL Normal 03/10/2023 0.2 - 1.3 [facility] SALICYLATE <1.0 Below low normal 03/10/2023 15 - 30 [facility] ACETAMINOPHEN <10.0 Below low normal 03/10/2023 10 - 30 [facility] ALCOHOL <10 Abnormal 03/10/2023 - [facility] IMMATURE GRAN. 0.3 % Normal 03/09/2023 0 - 1.1 [facility] LYMPHOCYTES 22.4 % Normal 03/09/2023 20 - 52 [facility] ABS. NEUTROPHIL 6.37 K/uL Normal 03/09/2023 2.5 - 7 [facility] NEUTROPHIL 66.5 % Normal 03/09/2023 50 - 70 [facility] ABS. MONOCYTE 0.97 K/uL Above high normal 03/09/2023 0 - 0.9 [facility] ABS. NUCLEATED RBC 0.0 K/uL Normal 03/09/2023 - [facility] NUCLEATED RBC 0.0 % Normal 03/09/2023 - [facility] BASOPHIL 0.3 % Normal 03/09/2023 0 - 2 [facility] DIFF TYPE AUTOMATED Normal 03/09/2023 [facility] ABS. LYMPHOCYTE 2.15 K/uL Normal 03/09/2023 1 - 5.2 [facility] MONOCYTE 10.1 % Normal 03/09/2023 0 - 12.5 [facility] EOSINOPHIL 0.4 % Normal 03/09/2023 0 - 4 [facility] ABS. EOSINOPHIL 0.04 K/uL Normal 03/09/2023 0 - 0.45 [facility] ABS. BASOPHIL 0.03 K/uL Normal 03/09/2023 0 - 0.2 [facility] ABS. IMMATURE GRAN. 0.03 K/uL Normal 03/09/2023 - 0.1 [facility] WBC COUNT 9.6 K/uL Normal 03/09/2023 4.2 - [address] [facility] [address] 317.0 K/uL Normal 03/09/2023 150 - 450 [facility] RBC COUNT 4.36 M/uL Normal 03/09/2023 4.2 - 5.4 [facility] MCV 87.4 fL Normal 03/09/2023 80 - 96 [facility] MCH 30.0 pg Normal 03/09/2023 27 - 31 [facility] HEMATOCRIT 38.1 % Normal 03/09/2023 38 - 47 [facility] RDWS 37.9 fL Below low normal 03/09/2023 41 - 51 [facility] HEMOGLOBIN 13.1 g/dL Normal 03/09/2023 12 - 16 [facility] MPV 10.0 fL Normal 03/09/2023 8 - 13 [facility] MCHC 34.4 g/dL Normal 03/09/2023 32 - 36 [facility] RDWC 11.9 % Normal 03/09/2023 11 - 16 [facility] CASTS 1+ Abnormal 03/09/2023 - [facility] BACTERIA NORMAL Normal 03/09/2023 - [facility] UA COMMENTS Manual Review NOT INDICATED Normal 03/09/2023 [facility] WBC,URINE 0-5 Normal 03/09/2023 - [facility] RBC,URINE 0-2 Normal 03/09/2023 - [facility] MICROSCOPIC/TYPE AUTOMATED Normal 03/09/2023 [facility] EPITH,URINE 1+ Abnormal 03/09/2023 - [facility] SPECIFIC GRAVITY, URINE 1.026 Above high normal 03/09/2023 1.005 - 1.022 [facility] KETONES,URINE 15.0 mg/dL Abnormal 03/09/2023 - [facility] UROBILINOGEN 1.0 EU/dL Normal 03/09/2023 0.2 - 1 [facility] LEUKOCYTES,URINE NEGATIVE Normal 03/09/2023 - [facility] APPEARANCE,URINE CLOUDY Abnormal 03/09/2023 - [facility] BILIRUBIN, URINE NEGATIVE Normal 03/09/2023 - [facility] COLOR,URINE YELLOW Normal 03/09/2023 [facility] PROTEIN,URINE 30.0 mg/dL Abnormal 03/09/2023 - [facility] GLUCOSE,URINE NEGATIVE Normal 03/09/2023 - [facility] PH,URINE 7.5 Normal 03/09/2023 4.6 - 8 [facility] NITRITES,URINE NEGATIVE Normal 03/09/2023 - [facility] BLOOD,URINE NEGATIVE Normal 03/09/2023 - [facility] COCAINE NEGATIVE Normal 03/09/2023 - [facility] THC POSITIVE Abnormal 03/09/2023 - [facility] BARBITURATES NEGATIVE Normal 03/09/2023 - [facility] OPIATES NEGATIVE Normal 03/09/2023 - [facility] BENZODIAZEPINE NEGATIVE Normal 03/09/2023 - [facility] PHENCYCLIDINE (PCP) NEGATIVE Normal 03/09/2023 - [facility] AMPHETAMINE NEGATIVE Normal 03/09/2023 - [facility] History of Medication Use Medication Directions Dispensed Refills Start Date End Date Stat us lamoTRIgine (LaMICtal) 25 mg tablet TAKE 1 TABLET BY MOUTH ONCE DAILY FOR 15 DAYS THEN 2 ONCE DAILY 04/15/2023 active OLANZapine (ZyPREXA) 10 mg tablet Take 10 mg by mouth nightly. 04/15/2023 active fluconazole (diFLUcan) 150 MG tablet Take 1 tablet (150 mg total) by mouth once. 03/24/2023 active guanFACINE (INTUNIV) 1 MG 24 hr tablet Take 1 mg by mouth nightly. 03/04/2023 active hydrOXYzine (VISTARIL) 25 mg capsule TAKE 1 CAPSULE BY MOUTH THREE TIMES DAILY NEEDED FOR ANXIETY 03/04/2023 active Allergies Allergen Reaction Severity Comment Documented Date Source Statu s LATEX RASH/DERMATITIS 02/18/2023 CCT activ e Problems Problem Status Onset Date Problem Type Date of Resoluti on Source Galactorrhea active EncounterDiagnosisAct HHCCT Bilateral bunions active EncounterDiagnosisAct [facility]S Encounters Encounter Type Encounter Reason Primary Diagnosis Location Date Emergency EVAL EVAL [facility] 05/20/2024 Ambulatory Personality disorder, unspecified Personality disorder, unspecified [facility] 05/05/2024 Emergency Localized swelling, mass and lump, trunk Localized swelling, mass and lump, trunk [facility] 04/22/2024 Ambulatory Galactorrhea not associated with childbirth Galactorrhea not associated with childbirth [facility] 04/13/2024 Ambulatory Galactorrhea not associated with childbirth Galactorrhea not associated with childbirth [facility] 01/19/2024 Ambulatory Bipolar disorder, unspecified Bipolar disorder, unspecified [facility] 01/04/2024 Ambulatory Encntr screen for infections w sexl mode of transmiss Encntr screen for infections w sexl mode of transmiss [facility] 12/29/2023 Ambulatory Pain Pain [facility] 04/20/2023 Ambulatory Unspecified abdominal pain Unspecified abdominal pain [place] [facility] 03/23/2023 Emergency 16B [facility] 03/09/2023 Emergency Anxiety disorder, unspecified [facility] 02/20/2023 Emergency ABDOMINAL PAIN [facility] 02/20/2023 Emergency Unspecified abdominal pain Unspecified abdominal pain [place] [facility] 02/18/2023 Ambulatory Unspecified abdominal pain [facility] 02/09/2023 Emergency [facility] 12/11/2022 Care Team Organization Name Specialty Phone Email Start Date End Da te [facility] LIGIADUNGHENNA Primary [facility] 12/02/2024 01/03/2025 [facility] SALO LUBIN Primary Care 09/26/2024 [facility] HENNA EVANS Primary Care 05/06/2024 [facility] 02/26/2024 [facility] 02/04/2024 [facility] Primary Care 10/06/2023 [place] [facility] 07/12/2023 [facility] 04/24/2023 024 [facility] Primary Care 04/20/2023 04/20/2023 [facility] Primary Care 03/23/2023 [place] [facility] 02/18/2023 09/07/2024 [facility] Primary Care 02/18/2023 02/18/2023 [facility] Primary Care 12/12/2022 01/03/2025 [facility] Primary Care 12/11/2022 12/11/2022 [facility] Mariia Cardoza Primary Care 12/09/2022
--- OUTSIDE RECORDS SUMMARY | 2025-01-12 11:43 | XMS_ITS | Clinical Summary ---
Author Organization [facility] Address [address] [place] [id number] Care Team Providers Care Milk Collector Name Role Phone [facility] [...] 90 03/23/2023 11:16 AM EDT Temperature 36.9 C (98.5 F) 02/18/2023 6:00 PM EDT Respiratory Rate 18 02/18/2023 7:50 PM EDT [...] 3-dose series) 2022 COVID-19 Vaccine (1 - 2023- season) 2024 Pap Smear (Ages 21-65) 02/22/2024 Influenza Vaccine 01/20/2025 04/05/2020, , 05/05/2018, Additional history exists Pneumococcal Vaccine: Pediatric (0-5 Years) and At-Risk Patients (6 to 49 Years) Aged Out No longer eligible based on patient's age to complete this topic Insurance [facility] Care Teams Milk Collector Relationship Specialty Start Date End Date [facility] [address] [place] [address] PCP - General 02/18/23
== END 2025-01-12 11:30 | disposition home or self-care (01) ==
LOC: HO.HGS 10:52
PROVIDERS: PCP Nurse Practitioner Family; Visit Provider Surgery
DX: L05.91 Pilonidal cyst without abscess (principal)
CPT/HCPCS: 99204

== ENCOUNTER 2025-01-26 08:32 | Outpatient (AMB) | payer OTHER, SELFPAY ==
--- NOTE | 2025-01-26 08:34 | A.OFFVIS_ITS ---
Vital Signs 01/26/25 08:40 Height 5 ft 4 in Weight 168 lb BMI 28.8 BP 149/84 H Blood Pressure Location Rt brachial Position Sitting Pulse 147 H Intake Visit Reasons: Pilonidal cyst Intake Note: Patient referred by Dr. Farrell for 2nd opinion of pilonidal cyst. Patient c/o: no concerns. Would like to have surgery. Windows Desktop Support Required: No Accompanied by: boyfriend Lew Allergies latex Allergy (Severe, Uncoded 01/26/25 08:38) Anaphylaxis HPI Comments Details: 19-year-old female referred for a question of a pilonidal cyst. She apparently had an I&D in the sacrococcygeal area twice already for an abscess in another institution over the past year. She was seen by Dr. Farrell 2 weeks ago. No induration or any suggestion of a cystic mass was seen so she was referred to me as the patient was insisting on excision. The patient is concerned about repeated infections and had stated that she wanted to have this area excised. She currently denies any pain. She denies any palpable mass. [facility] Medical History Bipolar 1 disorder Depression Anxiety Eczema Tremors of nervous system Imbalance Memory loss Incontinence IBS (irritable bowel syndrome) High blood pressure Family History Father Alcohol abuse Sister Substance abuse FH: mental illness Mother FH: mental illness Paternal Grandmother FH: mental illness Cancer Maternal Grandfather Testicular cancer Social History Housing: Apartment Patient Tobacco Use Status: Never used Tobacco e-Cigarette/Vaping Use: Currently Using Second Hand Smoke Exposure: No Substance Use Type: Marijuana service: No Current occupational status: unemployed Current occupational exposures/hazards: No Cognitive needs: No Hearing needs: No Vision needs: Yes Review of Systems Const Denies chills and Denies fever(s) Card Denies chest pain, Denies dyspnea and Denies dyspnea on exertion Resp Denies cough, Denies dyspnea and Denies dyspnea on exertion GI Denies hematochezia and Denies change in bowel habits Denies hematuria Musc Denies back pain and Denies limited range of motion Neuro Denies focal weakness and Denies convulsions Psych Reports anxiety, Denies depression and Denies mood swings Physical Exam Const Other: Anxious looking General: comfortable and no acute distress Orientation/consciousness: patient oriented x3 Neck Neck: Yes no lymphadenopathy Resp Auscultation: clear to auscultation bilaterally Cardio Rhythm: regular rhythm GI Palpation (GI): Soft to palpation, nontender and no guarding Back/Spine/Pelvis Other: No palpable induration, I&D scar to the right of the midline in the sacrococcygeal area, no mass, no tenderness, small midline pits within the gluteal cleft seen Neuro General: patient oriented x3 Assessment & Plan Assessment & Plan (1) Pilonidal cyst: Code(s): L05.91 - Pilonidal cyst without abscess Category: Medical Plan: I explained to her that currently, I do not feel any palpable cystic induration. There is no evidence of any swelling, tenderness or redness I recommended to her to monitor this closely. I told her that if she notices a recurrent mass or swelling, I we will see her in the office again so we can clearly define the area that may need to be excised. I explained to her that it may be hold off to proceed with surgical excision at this time She seems to be comfortable with the plan. Her boyfriend was with her during the visit Coding Level of Care Code Est Pt Level 3 (56689) Diagnoses Pilonidal cyst L05.91
[2025-01-26 08:40] VITALS: BP 149/84; PULSE 147; BMI 28.8
--- OUTSIDE RECORDS SUMMARY | 2025-01-26 08:45 | XMS_ITS | Clinical Summary ---
Author Organization [facility] Address [address] [place] [id number] Care Team Providers Care Optical Glass Wet Inspector Name Role Phone [facility] [...] patient's age to complete this topic Insurance [facility] Care Teams Optical Glass Wet Inspector Relationship Specialty Start Date End Date [facility] [address] [place] [address] PCP - General 02/18/23
== END 2025-01-26 08:49 | disposition home or self-care (01) ==
LOC: HO.HGS 08:32
PROVIDERS: PCP Nurse Practitioner Family; Visit Provider Surgery
DX: L05.91 Pilonidal cyst without abscess (principal)
CPT/HCPCS: 99213

== ENCOUNTER 2025-02-16 15:29 | Outpatient (AMB) | payer OTHER, SELFPAY ==
--- NOTE | 2025-02-16 15:36 | A.OFFPC_ITS ---
Vital Signs 02/16/25 15:42 Height 5 ft 4 in Weight 170 lb 4 oz BMI 29.2 BP 100/64 Blood Pressure Location Rt brachial Position Sitting Respiration 14 Pulse 87 Pulse Source Pulse Oximeter Temp 98.2 F Temp Source Temporal Artery Scan Pulse Oximetry (%) 97 Oxygen Delivery Method Room Air Intake Visit Reasons: [facility] from [facility] Intake Note: Earl presents in the office today because she is transferring her care. Patient has a plonidal cyst. Does have an appointment with a general surgeon. Allergies latex Allergy (Severe, Uncoded 02/16/25 15:39) Anaphylaxis Tobacco use date assessed: 02/16/25 Dental Screening Dental Screen Date: 02/16/25 Did you have a dental visit in the last 12 months?: Yes Did you have a dental problem in the last 6 months where you did not have access to dental care?: No Was dental information given to patient?: Patient has dentist HPI HPI Comments History of Present Illness Details This is a 19-year-old female with a past medical history of a pilonidal cyst, depression, anxiety and bipolar 1 disorder presenting to [place] care [place]. She is due for a physical exam. Pilonidal cyst-she was evaluated by General surgery on 01/26/2025. There was no palpable sister induration. She was instructed to monitor symptoms and return to their clinic as needed. Bipolar disorder, depression, anxiety-her current medications include hydroxyz ine, guanfacine and aripiprazole. Sees therapist, Sonya Ibarra, and med prescriber Gaby Cuevas. Aripiprazole was increased last week. She feels like it is helping. Vaping 5% nicotine 12 hits per hour. She wants to quit in his interested in patches. I will call intact the pharmacist to discuss dosing. She is prediabetic. She does not have contact with her family now but she believes there is a family history of type 2 diabetes. She has a bunion on the right foot and requests a referral to Podiatry. It is very painful for her to walk any sort of distances. Patient says she has been frequently treated for yeast infections. Eye and dental exams are up to date. Last tetanus shot in 2023. She plans to receive the seasonal flu vaccine. ROS: Constitutional: No unexplained weight loss, fever, chills, fatigue or night sweats. Eyes: No vision changes, blurry vision, double vision, eye pain, eye redness, eye discharge. ENT: No hearing loss, sneezing, congestion, runny nose or sore throat. Respiratory: No shortness of breath, cough or sputum production. Cardiovascular: No chest pain, chest pressure or chest discomfort. No palpitations or pedal edema. Gastrointestinal: No anorexia, nausea, vomiting or diarrhea. No abdominal pain or blood in stool. Genitourinary: No dysuria, hematuria, urinary frequency. Neurologic: No headache, dizziness, syncope, unilateral weakness, ataxia, numbness or tingling in the extremities. Musculoskeletal: No back pain or joint swelling Hematologic/Lymphatics: No bleeding or bruising. No painful lymph nodes. Skin: No rashes Endocrine: No cold or heat intolerance. No polyuria or polydipsia. Psychiatric: See HPI Physical exam: Constitutional: Alert, in no distress. Head: Normocephalic. Eyes: Pupils are equal, round and reactive to light. Extraocular muscles intact. Ear, Nose and Throat: Canals clear. TMs normal. Normal nasal mucosa. No nasal discharge. No oral lesions. Neck: Supple, Full range of motion. No lymphadenopathy. No palpable thyroid masses. Respiratory: Clear to auscultation. Cardiovascular: S1 S2 regular. No murmurs. No carotid bruits. : No CVA tenderness Gastrointestinal: Abdomen soft, non-tender, non-distended. Normal bowel sounds. No palpable masses. Neurologic: No focal neurological deficits. Symmetric patellar reflexes. Moves all extremities spontaneously. Sensation intact bilaterally. Skin: Acneiform lesions on the face. Musculoskeletal: No gross deformities. Normal range of motion. Extremities: Warm and well perfused. No clubbing, cyanosis or edema. Bunion of the right great toe. Psychiatric: Normal mood and affect [facility] Medical History Bipolar 1 disorder Depression Anxiety Eczema Tremors of nervous system Imbalance Memory loss Incontinence IBS (irritable bowel syndrome) High blood pressure Family History Father Alcohol abuse Sister Substance abuse FH: mental illness Mother FH: mental illness Paternal Grandmother FH: mental illness Cancer Maternal Grandfather Testicular cancer Social History (Updated 02/16/25 @ 15:42 by Paige Tim MA) Housing: Apartment Alcohol intake: never Patient Tobacco Use Status: Current everyday Tobacco user e-Cigarette/Vaping Use: Currently Using Second Hand Smoke Exposure: No Substance Use Type: Marijuana service: No Current occupational status: unemployed Current occupational exposures/hazards: No Cognitive needs: No Hearing needs: No Vision needs: Yes Questionnaire Thrive Questionnaire Date Thrive assessed: 10/03/24 I am a: Patient What is your living situation today?: I have a steady place to live Within the past 12 months, did the food you bought not last and you didn't have the money to get more?: Never true Within the past 12 months, did you worry whether your food would run out before you got money to buy more?: Never true Do you have trouble paying for medicines?: I choose not to answer this question Do you have trouble getting transportation to medical appointments?: No Do you have trouble paying your heating and electricity bill?: No Do you have trouble taking care of your child, family member or friend?: No Do you have trouble with day-to-day activities such as bathing, preparing meals, shopping, managing finances, etc.?: Yes Are you currently unemployed and looking for a job?: Yes Are you interested in more education?: I choose not to answer this question THRIVE Score: 0 SARANYA-7 AMB Questionnaire SARANYA-7 Date SARANYA - 7 assessed: 10/03/24 Source: Developed by Drs. Jared Denis, Antonia Rivera, Gregory Ayala and colleagues, with an educational preeti from [employer]. Physical exam (Primary Care) Vital Signs: Last Vital Signs Temp 98.2 F 02/16/25 15:42 Pulse 87 02/16/25 15:42 Resp 14 02/16/25 15:42 BP 100/64 02/16/25 15:42 Pulse Ox 97 02/16/25 15:42 Oxygen Delivery Method Room Air 02/16/25 15:42 BMI result Body Mass Index 29.2 Tobacco/Smoking Status: Tobacco use Status Tobacco use date assessed 02/16/25 02/16/25 15:44 Patient Tobacco Use Status Current everyday Tobacco 02/16/25 15:44 e-Cigarette/Vaping Use Currently Using 02/16/25 15:42 Thrive Assessment: Date of Thrive Assessment Date Thrive assessed 10/03/24 02/16/25 15:38 Coding Level of Care Code Est Pt Prev Care 18-39y(07767) Diagnoses Routine physical examination Z00.00 Bipolar 1 disorder F31.9 Prediabetes R73.03 Bunion, right foot M21.611 Assessment & Plan Assessment & Plan (1) Routine physical examination: Code(s): Z00.00 - Encounter for general adult medical examination without abnormal findings Category: Medical Plan: Patient is seen today for a routine physical. As part of this visit we reviewed the following issues, which are considered and essential part of preventative health in this age group: - Breast Cancer screening - Annual Drafter Assistant exam - Blood pressure screening - Cholesterol screening - Osteoporosis prevention including calcium/vitamin D intake, weight bearing exercise & smoking cessation - Nutritional and exercise counseling - Counseling of injury prevention including fire prevention, smoke alarms and seat belt usage - Screening for depression - Prevention of and/or testing for infectious diseases - Education about skin cancer - Recommendations about immunizations - Recommendation of an eye exam - Screening for substance abuse - Genetic cancer risk screening (2) Bipolar 1 disorder: Code(s): F31.9 - Bipolar disorder, unspecified Category: Medical Plan: Continue management per Psychiatry. (3) Prediabetes: Code(s): R73.03 - Prediabetes Category: Medical Plan: Recommended decreasing portion sizes and increasing exercise to promote a healthy weight. Follow a low carbohydrate low sugar diet. Patient does not drink alcohol. Check hemoglobin A1c. (4) Bunion, right foot: Code(s): M21.611 - Bunion of right foot Category: Medical Plan: Refer to podiatry. Plan Follow up in 4 weeks to review lab results via telehealth. Orders: Orders Comprehensive Met. Panel Today F41.9 - Anxiety disorder, unspecified, R73.03 - Prediabetes, Z13.6 - Encounter for screening for cardiovascular disorders Complete Blood Count no Diff Today F41.9 - Anxiety disorder, unspecified, R73.03 - Prediabetes, Z13.6 - Encounter for screening for cardiovascular disorders UA w Microscopic Today R39.9 - Unspecified symptoms and signs involving the genitourinary system Urine Culture Today R30.0 - Dysuria CT NG by PCR Urine Today Z20.2 - Contact with and (suspected) exposure to infections with a predominantly sexual mode of transmission HIV Ab/Ag Today Z20.2 - Contact with and (suspected) exposure to infections with a predominantly sexual mode of transmission TSH reflex Free T4 Today F41.9 - Anxiety disorder, unspecified, R73.03 - Prediabetes, Z13.6 - Encounter for screening for cardiovascular disorders Lipid Panel Today F41.9 - Anxiety disorder, unspecified, R73.03 - Prediabetes, Z13.6 - Encounter for screening for cardiovascular disorders Hemoglobin A1c Today F41.9 - Anxiety disorder, unspecified, R73.03 - Prediabetes, Z13.6 - Encounter for screening for cardiovascular disorders Hepatitis C Antibody Today Z20.2 - Contact with and (suspected) exposure to infections with a predominantly sexual mode of transmission Syphilis Screen Today Z20.2 - Contact with and (suspected) exposure to infections with a predominantly sexual mode of transmission Referrals STAFF TRAINER Referral Z01.419 - Encounter for gynecological examination (general) (routine) without abnormal findings Podiatry Referral M21.611 - Bunion of right foot
[2025-02-16 15:42] VITALS: BP 100/64; PULSE 87; RESP 14; TEMP 36.8; O2SAT 97; BMI 29.2
--- OUTSIDE RECORDS SUMMARY | 2025-02-16 15:56 | XMS_ITS | Encounter Summary ---
Author Organization [facility] Address [address] [place] [address] Care Team Providers Care Cooler Deliverer Name Role Phone [facility] Primary Care P rovider Encounter Details Date Type Department Care Team (Late st Contact Info) Description 04/21/2024 Scanned Document [facility] General Surgery [place] [address] [phone] Summer Lan MD 5 [facility] [address] [place], [place] Social History Tobacco Use Types Packs/Day [...] on filedocumented in this encounter Care Teams Cooler Deliverer Relationship Specialty [facility] [address] [place] [address] PCP - General 02/18/23 documented as of this encounter
--- OUTSIDE RECORDS SUMMARY | 2025-02-16 15:56 | XMS_ITS | Clinical Summary ---
Author Organization [facility] Address [address] [place] [address] Care Team Providers Care Marine Fisheries Technician Name Role Phone [facility] [...] patient's age to complete this topic Insurance [facility] Care Teams Marine Fisheries Technician Relationship Specialty Start Date End Date [facility] [address] [place] [address] PCP - General 02/18/23
--- OUTSIDE RECORDS SUMMARY | 2025-02-16 15:56 | XMS_ITS | Encounter Summary ---
Author Organization [facility] Address [address] [place] [address] Care Team Providers Care Insurance Account Representative Name Role Phone [facility] Primary Care P rovider Encounter Details Date Type Department Care Team (Late st Contact Info) Description 02/25/2024 Scanned Document [facility]OCI[facility] [address] [place] [phone] Provider, Darius, [address] [place] [address] Social History Tobacco Use Types Packs/Day Years [...] on filedocumented in this encounter Care Teams Insurance Account Representative Relationship Specialty Start Date End Date [facility] [address] [place] [address] PCP - General 02/18/23 documented as of this encounter
== END 2025-02-16 16:15 | disposition home or self-care (01) ==
LOC: HO.HMCFM 15:30
PROVIDERS: PCP Nurse Practitioner Family; Visit Provider Physician Assistant Medical
DX: Z00.00 Encounter for general adult medical examination without abnormal findings (principal); F31.9 Bipolar disorder, unspecified; R73.03 Prediabetes; M21.611 Bunion of right foot

== ENCOUNTER 2025-02-23 10:56 | Outpatient (REF) | payer OTHER, SELFPAY ==
--- OUTSIDE RECORDS SUMMARY | 2025-02-23 12:32 | XMS_ITS | Encounter Summary ---
Author Organization [facility] Address [address] [place] [address] Care Team Providers Care Banquet Director Name Role Phone [facility] Primary Care P rovider Encounter Details Date Type Department Care Team (Late st Contact Info) Description 04/21/2024 Scanned Document [facility] General Surgery [place] [address] [phone] Summer Lan MD 5 [facility] [address] [place], [place] Social History Tobacco Use Types Packs/Day [...] on filedocumented in this encounter Care Teams Banquet Director Relationship Specialty Start Date End [facility] [address] [place] [address] PCP - General 02/18/23 documented as of this encounter
--- OUTSIDE RECORDS SUMMARY | 2025-02-23 12:32 | XMS_ITS | Encounter Summary ---
Author Organization [facility] Address [address] [place] [address] Care Team Providers Care Director Of Curriculum And Instruction Name Role Phone [facility] Primary Care P rovider Encounter Details Date Type Department Care Team (Late st Contact Info) Description 02/25/2024 Scanned Document [facility] METAL RECLAMATION KETTLE TENDER [address] [place] [phone] Provider, Darius, [address] [place] [address] Social History Tobacco Use Types Packs/Day Years [...] on filedocumented in this encounter Care Teams Director Of Curriculum And Instruction Relationship Specialty Start Date End Date [facility] [address] [place] [address] PCP - General 02/18/23 documented as of this encounter
--- OUTSIDE RECORDS SUMMARY | 2025-02-23 12:32 | XMS_ITS | Clinical Summary ---
Author Organization [facility] Address [address] [place] [address] Care Team Providers Care Dolly Operator Name Role Phone [facility] [...] patient's age to complete this topic Insurance [facility] Care Teams Dolly Operator Relationship Specialty Start Date End Date [facility] [address] [place] [address] PCP - General 02/18/23
[2025-02-23 14:15] LABS: Hematocrit 40.6 % (37.0-47.0); Hemoglobin 13.5 g/dl (12.0-16.0); Mean Corpuscular HGB Conc 33.3 g/dl (31.0-35.0); Mean Corpuscular Hemoglobin 27.8 pg (27.0-33.0); Mean Corpuscular Volume 83.5 fL (80.0-98.0); NRBC Abs Auto 0.000 X10*3/uL (0.0-0.012); NRBC Pct Auto 0.0 /100WBC (0.0-0.2); Platelet Count 322 X10*3/uL (160-400); Red Blood Count 4.86 X10*6/uL (4.20-5.50); White Blood Count 8.1 X10*3/uL (4.8-10.8)
[2025-02-23 14:18] LABS: Hemoglobin A1C 117.2941 umol/L; Total Hemoglobin (HGBA1C) 3491.6513 umol/L
[2025-02-23 14:26] LABS: Appearance Urine Clear; Glucose Urine UA Negative (Negative); PH 6.0 (5.0-9.0); Specific Gravity - Urine 1.020 (1.005-1.025)
[2025-02-23 14:42] LABS: Alanine Aminotransferase 15 U/L (0-31); Albumin Level 5.0 g/dL (3.5-5.0); Alkaline Phosphatase 65 U/L (39-117); Anion Gap 14 (12-20); Aspartate Amino Transferase 25 U/L (5-31); Blood Urea Nitrogen 9 mg/dL (9-16); Calcium 9.3 mg/dL (8.4-10.2); Carbon Dioxide 25 mmol/L (22-29); Chloride 105 mmol/L (96-108); Cholesterol 172 mg/dL (<200); Estimated Glomerular Filt Rate > 60; HDL Cholesterol 36 mg/dL (>40); Potassium 4.2 mmol/L (3.3-5.1); Sodium 140 mmol/L (135-145); Total Protein 7.6 g/dL (6.5-8.0); Triglycerides 128 mg/dL (<150)
[2025-02-23 15:47] LABS: CT PCR Urine NOT DETECTED (Not Detect.); NG PCR Urine NOT DETECTED (Not Detect.)
[2025-02-24 04:30] LABS: HIV Num 1 0.07 S/CO (0.00-0.99); ~HepC Num1 0.10 S/CO (0.00-0.79); ~Hepatitis C Antibody Nonreactive (Nonreactive)
[2025-02-24 04:50] LABS: Syphilis Screen Nonreactive (Nonreactive)
== END 2025-02-23 10:57 | disposition home or self-care (01) ==
LOC: HO.WFDLDS 10:56
PROVIDERS: Visit Provider Physician Assistant Medical
DX: R73.03 Prediabetes (principal); F41.9 Anxiety disorder, unspecified; R30.0 Dysuria; R39.9 Unspecified symptoms and signs involving the genitourinary system; Z13.6 Encounter for screening for cardiovascular disorders; Z20.2 Contact with and (suspected) exposure to infections with a predominantly sexual mode of transmission; Z11.4 Encounter for screening for human immunodeficiency virus [HIV]; Z11.59 Encounter for screening for other viral diseases; Z01.84 Encounter for antibody response examination; Z11.8 Encounter for screening for other infectious and parasitic diseases
CPT/HCPCS: 80053; 80061; 81001; 83036; 84443; 85027; 86780; 86803; 87086; 87389; 87491; 87591